=== PATIENT | male | born 1960 | race Hispanic/Latino ===

== ENCOUNTER 2017-09-03 13:43 | Emergency (ER) | payer OTHER ==
[2017-09-03 15:15] LABS: BASO # 0.1 K/uL (0.0-0.2); BASO % 0.9 % (0.0-2.0); EOS # 0.2 K/uL (0.0-0.7); EOS % 2.6 % (0.0-4.0); HEMOGLOBIN 14.9 g/dL (12.0-18.0); LYMPH # 1.2 K/uL (1.0-4.3); LYMPH % 15.4 % (20.0-40.0); MEAN CELL VOLUME 95.6 fL (80.0-94.0); MEAN CORPUSCULAR HEMOGLOBIN 33.5 pg (27.0-31.0); MEAN CORPUSCULAR HGB CONC 35.1 g/dL (33.0-37.0); MEAN PLATELET VOLUME 7.7 fL (7.2-11.7); MONO # 0.6 K/uL (0.0-0.8); MONO % 7.7 % (0.0-10.0); NEUT # 5.8 K/uL (1.8-7.0); NEUT % 73.4 % (50.0-75.0); RBC 4.45 Mil/uL (4.40-5.90); WHITE BLOOD COUNT 7.8 K/uL (4.8-10.8)
[2017-09-03 15:24] LABS: INR 1.1; PROTHROMBIN TIME 12.2 SECONDS (9.7-12.2)
[2017-09-03] MEDS ORDERED: Albuterol-Ipratrop 3 mg / 0.5 (3 ml) UD INH STA ×3 (15:24→20:39)
[2017-09-03] MEDS ORDERED: cefTRIAXone IV 1 gm in Dextros 50 ML IV STA (15:25)
[2017-09-03] MEDS ORDERED: Sodium Chloride 0.9% 1,000 ML IV ONE (15:25)
--- NOTE | 2017-09-03 15:27 | C.PDOC ---
History Of Present Illness 57yo male with no past medical history, presents to ER for evaluation of constant chest pain for the past 3 days with associated shortness of breath, productive cough, and intermittent fever for the past 2 days. He also reports associated bodyaches and headaches. Patient was seen by Dr. Townsend and had an EKG in the office indicating an elevated heart rate; patient was instructed by Dr. Townsend to come to the ER for further evaluation. Time Seen by Provider: 09/03/17 15:00 Chief Complaint (Nursing): Medical Clearance History Per: Patient History/Exam Limitations: no limitations Onset/Duration Of Symptoms: Days Current Symptoms Are (Timing): Still Present Additional History Per: Patient Past Medical History Reviewed: Historical Data, Nursing Documentation, Vital Signs Vital Signs: Last Vital Signs Temp 98.8 F 09/03/17 21:11 Pulse 93 H 09/03/17 21:11 Resp 18 09/03/17 21:11 BP 134/87 09/03/17 21:11 Pulse Ox 91 L 09/04/17 23:18 - Medical History PMH: No Chronic Diseases Surgical History: Cholecystectomy (89) Other Surgeries: plate on left foot and lower extremity Family History: States: No Known Family Hx - Social History Hx Alcohol Use: Yes Hx Substance Use: No - Immunization History Hx Tetanus Toxoid Vaccination: No Hx Influenza Vaccination: No Hx Pneumococcal Vaccination: No Review Of Systems Except As Marked, All Systems Reviewed And Found Negative. Constitutional: Positive for: Fever (intermittent), Other (bodyaches). Negative for: Weakness Eyes: Negative for: Pain, Vision Change, Conjunctivae Inflammation Cardiovascular: Positive for: Chest Pain Respiratory: Positive for: Cough, Shortness of Breath, Sputum. Negative for: Hemoptysis Gastrointestinal: Negative for: Nausea, Vomiting, Abdominal Pain Genitourinary: Negative for: Dysuria, Frequency Musculoskeletal: Negative for: Neck Pain, Shoulder Pain Skin: Negative for: Rash Neurological: Positive for: Headache. Negative for: Weakness, Numbness, Incoordination Psych: Negative for: Anxiety, Depression Physical Exam - Physical Exam Appears: Non-toxic, Chronically Ill Skin: Normal Color, Warm, Dry Head: Atraumatic, Normacephalic Eye(s): bilateral: Normal Inspection, PERRL, EOMI Oral Mucosa: Moist Neck: Normal ROM, Supple Chest: Symmetrical Cardiovascular: Rhythm Regular Respiratory: Rhonchi (coarse rhonchi bilateral lung souza), Wheezing (diffuse expiratory wheeze) Back: Normal Inspection Male Genital: Normal Inspection Neurological/Psych: Oriented x3 ED Course And Treatment - Laboratory Results Result Diagrams: 09/03/17 15:11 09/03/17 15:11 O2 Sat by Pulse Oximetry: 91 Pulse Ox Interpretation: Abnormal (hypoxic) Medical Decision Making Medical Decision Making: Impression: Chest pain, shortness of breath Plan: -- Labs -- CXR -- Duoneb 3ml INH x 2 -- Tylenol 975mg PO -- IV fluids -- Zithromax 500mg IV -- Rocephin 1g IV -- Motrin 600mg PO Time: 1600 CXR reviewed by provider and shows retrocardiac opacity. Time: 2039 On re-evaluation, patient states he feels much better. Repeat lung exam indicates wheezing. Duoneb 6ml INH ordered. Time: 2103 Upon reevaluation, patient with improved breath sounds. Stable for discharge home, instructed to take medication as prescribed and to follow up with PMD in 2 -3 days. Disposition Counseled Patient/Family Regarding: Diagnosis - Disposition Referrals: [facility] at [facility] [place]] [facility] at [facility] [Outside] [facility] at [place] [Outside] Disposition: HOME/ ROUTINE Disposition Time: 21:05 Condition: GOOD Additional Instructions: return to ed if symtpoms worsen Prescriptions: Albuterol HFA [Ventolin HFA 90 mcg/actuation (8 g)] 2 puff IH [id number] PRN 30 Days #1 puff PRN Reason: Wheezing Amoxicillin/Clavulanate [Augmentin 875 MG-125 MG] 1 tab PO BID 10 Days #20 tab Azithromycin 250 mg PO DAILY 5 Days #6 tablet Instructions: Chronic Obstructive Pulmonary Disease (COPD), Including Emphysema , Pneumonia, Adult (DC) Forms: [email or web address] ([place]) - POA Core Measure Indicators: Chest Pain, Pneumonia - Clinical Impression Clinical Impression: Chest discomfort, Pneumonia, COPD with exacerbation - Scribe Statement The provider has reviewed the documentation as recorded by the Scribe (Morena Mayorga) Provider Attestation: All medical record entries made by the Scribe were at my direction and personally dictated by me. I have reviewed the chart and agree that the record accurately reflects my personal performance of the history, physical exam, medical decision making, and the department course for this patient. I have also personally directed, reviewed, and agree with the discharge instructions and disposition.
[2017-09-03 15:43] LABS: ALB/GLOB RATIO 1.3 (1.0-2.1); ALBUMIN 4.2 g/dL (3.5-5.0); ALT/SGPT 40 U/L (21-72); AST/SGOT 25 U/L (17-59); BLOOD UREA NITROGEN 15 mg/dL (9-20); CALCIUM 9.2 mg/dl (8.6-10.4); GFR AFRICAN-AMERICAN > 60; GFR NON-AFRICAN AMERICAN > 60
--- NOTE | 2017-09-03 15:44 | RAD ---
HISTORY: chest pain COMPARISON: No prior. TECHNIQUE: Chest PA and lateral FINDINGS: LUNGS: No active pulmonary disease. PLEURA: No significant pleural effusion identified. No pneumothorax apparent. CARDIOVASCULAR: Normal. OSSEOUS STRUCTURES: No significant abnormalities. VISUALIZED UPPER ABDOMEN: Normal. OTHER FINDINGS: None. IMPRESSION: No active disease.
[2017-09-03 15:55] LABS: B-TYPE NATRIURETIC PEPTIDE 183 pg/mL (0-900)
[2017-09-03] MEDS ORDERED: cefTRIAXone IV 1 gm in Dextros 50 ML IVPB ONE (15:57)
[2017-09-03] MEDS ORDERED: Sodium Chloride 0.9% 1,000 ML ONE (15:57)
[2017-09-03] MEDS ORDERED: Albuterol-Ipratrop 3 mg / 0.5 (3 ml) UD ONE ×2 (15:59→19:00)
[2017-09-03] MEDS ORDERED: Azithromycin 500 MG in Sodium Chloride 0.9% 250 ML IVPB ONE (16:00)
[2017-09-03 16:37] LABS: LIPASE 35 U/L (23-300)
[2017-09-03 21:12] VITALS: BP 134/87; PULSE 93; RESP 18; TEMP 98.8
--- NOTE | 2017-09-04 12:12 | CT ---
PROCEDURE: CT Chest without contrast HISTORY: Shortness of breath COMPARISON: Plain radiographs from 09/03/2017. TECHNIQUE: Contiguous axial images were obtained through the chest without intravenous contrast enhancement. Sagittal and coronal reconstructions were performed. Radiation dose (DLP): 685.19 MGy-cm. This CT exam was performed using one or more of the following dose reduction techniques: Automated exposure control, adjustment of the mA and/or kV according to patient size, and/or use of iterative reconstruction technique. FINDINGS: LUNGS: The lungs are well inflated. There is bibasilar subsegmental atelectasis. There is a 4 mm calcified granuloma in the right middle lobe. No focal consolidation. There are no endobronchial lesions MEDIASTINUM: The aorta is normal in caliber. No aneurysm. Normal sized heart. Main pulmonary artery unremarkable. No vascular congestion. No bulky lymphadenopathy. PLEURA: No pleural fluid. No pneumothorax. BONES: No fracture. No destructive lesion. There is diffuse bone demineralization and multilevel degenerative changes in the spine. UPPER ABDOMEN: Grossly unremarkable. OTHER FINDINGS: None. IMPRESSION: No acute findings. Specifically, no evidence of consolidation, pleural effusion or pneumothorax.
--- NOTE | 2017-09-04 12:20 | CARD ---
APPROVED REPORT EKG Measurement Heart [id number] <Conclusion> Sinus tachycardia Possible Left atrial enlargement Borderline ECG
[2017-09-04 23:16] VITALS: O2SAT 91
== END 2017-09-03 21:26 | disposition home or self-care (01) ==
LOC: C.ER 13:43
DX: J18.9 Pneumonia, unspecified organism (principal); J44.1 Chronic obstructive pulmonary disease with (acute) exacerbation; R07.89 Other chest pain
CPT/HCPCS: 71046; 71250; 80053; 83690; 83880; 84484; 85025; 85610; 85730; 87040; 93005; 94640; 94660; 96361; 96365; 96367; 99285; J0456; J0696; J7040